=== PATIENT | female | born 1975 | race Caucasian/White ===

== ENCOUNTER 2016-03-11 14:18 | Emergency (ER) | payer BC ==
[~2016-03-11] VITALS: Ht 170.2 cm; Wt 81.8 kg
[~2016-03-11 14:18] MED LIST: AMBIEN 10MG10 MG; AMBIEN 10MG10 MG PO; BENADRYL25 M2 PO; BUSPAR DIVIDOSE15 MG; EFFEXOR-XR150 MG PO; FIORINAL 325 MG1 CAP PO; FLAGYL500 MG PO; FLEXERIL 1010 MG/TAB PO; HAIRSKINNAILS PO; KLONOPIN 0.5MG0.5 MG; MERIBIN5 MG PO; NORCO 325 MG-51 TAB PO; PERCR 7.5 PO
[2016-03-11 14:19] VITALS: TEMP 98.6
[2016-03-11] MEDS ORDERED: WELLBUTRIN XL150 MG (14:52)
[2016-03-11 15:32] LABS: BASO # 0.1 (0.0-0.2); BASO % 0.7 % (0.0-2.0); EOS # 0.1 (0.0-0.7); EOS % 1.4 % (0-4.0); GRAN # 5.7 (1.4-6.5); HEMATOCRIT 40.2 % (37.0-47.0); HEMOGLOBIN 13.7 g/dl (12.5-16.0); LYMPH # 2.8 (1.2-3.4); LYMPH % 29.9 % (20.0-51.0); MEAN CELL VOLUME 91 fl (80.0-100.0); MEAN CORPUSCULAR HEMOGLOBIN 31 pg (27.0-31.0); MEAN CORPUSCULAR HGB CONC 34 g/dl (33.0-37.0); MEAN PLATELET VOLUME 9.7 fl (7.4-10.4); MONO # 0.6 (0.1-0.6); MONO % 6.8 % (1.7-9.3); PLATELET COUNT 346 K/mm3 (130-400); RED BLOOD COUNT 4.43 M/mm3 (4.10-5.30); REDCELL DISTRIBUTION WIDTH-CV 13.3 % (11.5-14.5); WHITE BLOOD COUNT 9.4 K/mm3 (4.8-10.8)
[2016-03-11 15:47] LABS: ADJUSTED CALCIUM 9.3 mg/dL (8.4-10.2); ALANINE AMINOTRANSFERASE 35 U/L (9-52); ALKALINE PHOSPHATASE 93 U/L (50-136); ANION GAP 10 mmol/L (7-16); BILIRUBIN,TOTAL 0.9 mg/dL (0.0-1.0); BLOOD UREA NITROGEN 11 mg/dL (7-17); CALCIUM 9.3 mg/dL (8.4-10.2); CARBON DIOXIDE 23 mmol/L (22-30); CHLORIDE 106 mmol/L (98-107); CREATININE, serum 0.69 mg/dL (0.52-1.25); GLUCOSE 96 mg/dL (74-106); POTASSIUM 4.1 mmol/L (3.4-5.0); SODIUM 139 mmol/L (137-145); TOTAL PROTEIN 7.1 gm/dL (6.4-8.2)
[2016-03-11 16:03] LABS: PROLACTIN 9.8 ng/mL (3.0-18.6)
[2016-03-11 17:24] LABS: TROPONIN-I < 0.012 ng/mL (0.000-0.034)
[2016-03-11] MEDS ORDERED: NORCO 325 MG-51 TAB PO (17:31)
[2016-03-11 17:45] VITALS: BP 114/55; PULSE 74
== END 2016-03-11 17:48 | disposition home or self-care (01) ==
LOC: COL.ER 14:18
PROVIDERS: Emergency Medicine
DX: R55 Syncope and collapse (principal); S00.03XA Contusion of scalp, initial encounter; W18.39XA Other fall on same level, initial encounter; F17.210 Nicotine dependence, cigarettes, uncomplicated
CPT/HCPCS: C9113; J1170; J2270; J2405; J7030

== ENCOUNTER 2017-05-03 20:14 | Emergency (ER) | payer BC ==
[~2017-05-03] VITALS: Ht 170.2 cm; Wt 77.3 kg
[~2017-05-03 20:14] MED LIST changes: +MIGRAINE; +PERCOCET 325 MG1 TA2 PO; +TOPAMAX 100MG100 M1 PO; +WELLBUTRIN XL150 MG
[2017-05-03 20:17] VITALS: TEMP 99.2
[2017-05-03] MEDS ORDERED: EFFEXOR XR75 MG/CAP PO (23:12)
[2017-05-03] MEDS ORDERED: DOXYCYCLINE 10100 MG PO (23:21)
[2017-05-03 23:41] VITALS: BP 132/82; PULSE 100
== END 2017-05-03 23:41 | disposition home or self-care (01) ==
LOC: COL.ER 20:14
DX: J20.9 Acute bronchitis, unspecified (principal); F41.9 Anxiety disorder, unspecified; F17.210 Nicotine dependence, cigarettes, uncomplicated; Z88.8 Allergy status to other drugs, medicaments and biological substances; Z90.49 Acquired absence of other specified parts of digestive tract; Z98.890 Other specified postprocedural states

== ENCOUNTER 2017-05-28 04:09 | Inpatient (IN) | payer BC ==
[~2017-05-28] VITALS: Ht 170.2 cm; Wt 78.5 kg
[~2017-05-28 04:09] MED LIST changes: +DOXYCYCLINE 10100 MG PO; +EFFEXOR XR75 MG/CAP PO
[2017-05-28] MEDS ORDERED: BUSPAR DIVIDOSE15 MG PO (04:34)
[2017-05-28 04:48] LABS: BASO # 0.1 (0.0-0.2); BASO % 0.4 % (0.0-2.0); EOS # 0.3 (0.0-0.7); GRAN # 7.7 (1.4-6.5); GRAN % 56.4 % (42.2-75.2); HEMATOCRIT 42.7 % (37.0-47.0); HEMOGLOBIN 14.8 g/dl (12.5-16.0); LYMPH # 4.7 (1.2-3.4); LYMPH % 34.3 % (20.0-51.0); MEAN CELL VOLUME 91 fl (80.0-100.0); MEAN CORPUSCULAR HEMOGLOBIN 31 pg (27.0-31.0); MEAN CORPUSCULAR HGB CONC 35 g/dl (33.0-37.0); MEAN PLATELET VOLUME 9.6 fl (7.4-10.4); MONO # 0.9 (0.1-0.6); MONO % 6.6 % (1.7-9.3); PLATELET COUNT 316 K/mm3 (130-400); RED BLOOD COUNT 4.72 M/mm3 (4.10-5.30); REDCELL DISTRIBUTION WIDTH-CV 13.4 % (11.5-14.5)
[2017-05-28 05:00] LABS: ALANINE AMINOTRANSFERASE 35 U/L (9-52); ALBUMIN 4.2 gm/dL (3.5-5.0); ALKALINE PHOSPHATASE 87 U/L (50-136); ANION GAP 13 mmol/L (7-16); AST,SGOT 16 U/L (15-37); BILIRUBIN,TOTAL 0.3 mg/dL (0.0-1.0); BLOOD UREA NITROGEN 20 mg/dL (7-17); CALCIUM 9.2 mg/dL (8.4-10.2); CARBON DIOXIDE 22 mmol/L (22-30); CHLORIDE 104 mmol/L (98-107); CREATININE, serum 0.67 mg/dL (0.52-1.25); GLUCOSE 110 mg/dL (74-106); MAGNESIUM 1.8 mg/dL (1.6-2.3); POTASSIUM 3.9 mmol/L (3.4-5.0); SODIUM 139 mmol/L (137-145)
[2017-05-28 05:11] LABS: TROPONIN-I < 0.012 ng/mL (0.000-0.034)
[2017-05-28 05:30] LABS: TSH w REFLEX 0.845 uIU/mL (0.465-4.680)
[2017-05-28 07:57] VITALS: BP 133/81; PULSE 81; TEMP 98.8
[2017-05-28] MEDS ORDERED: BIOTIN10000 MC1 PO (08:27)
[2017-05-28 09:16] LABS: CHOLESTEROL RISK RATIO 5.3
[2017-05-28 11:45] VITALS: BP 132/76; PULSE 83; TEMP 98.8
[2017-05-28 15:29] VITALS: BP 123/66; PULSE 84; TEMP 97.8
[2017-05-28 20:10] VITALS: BP 133/76; PULSE 89; TEMP 98.6
[2017-05-28 23:29] VITALS: BP 125/81; PULSE 91; TEMP 97.4
[2017-05-29 03:41] VITALS: BP 120/60; PULSE 75; TEMP 98.6
[2017-05-29 04:40] VITALS: BP 120/60; PULSE 75; TEMP 98.6
[2017-05-29 07:29] VITALS: BP 106/61; PULSE 86; TEMP 98
[2017-05-29 07:55] LABS: BASO # 0.1 (0.0-0.2); BASO % 0.7 % (0.0-2.0); EOS # 0.3 (0.0-0.7); EOS % 2.8 % (0-4.0); GRAN % 48.2 % (42.2-75.2); HEMATOCRIT 42.7 % (37.0-47.0); HEMOGLOBIN 14.2 g/dl (12.5-16.0); LYMPH # 4.3 (1.2-3.4); LYMPH % 40.9 % (20.0-51.0); MEAN CELL VOLUME 94 fl (80.0-100.0); MEAN CORPUSCULAR HEMOGLOBIN 31 pg (27.0-31.0); MEAN CORPUSCULAR HGB CONC 33 g/dl (33.0-37.0); MEAN PLATELET VOLUME 10.1 fl (7.4-10.4); MONO # 0.7 (0.1-0.6); MONO % 6.9 % (1.7-9.3); PLATELET COUNT 286 K/mm3 (130-400); RED BLOOD COUNT 4.53 M/mm3 (4.10-5.30); REDCELL DISTRIBUTION WIDTH-CV 13.9 % (11.5-14.5)
[2017-05-29 08:16] LABS: CALCIUM 8.8 mg/dL (8.4-10.2); CREATININE, serum 0.71 mg/dL (0.52-1.25)
[2017-05-29] MEDS ORDERED: MAG-OX 400400 MG/TAB PO (11:11)
[2017-05-29 11:38] VITALS: BP 117/64; PULSE 96; TEMP 98.1
== END 2017-05-29 12:00 | disposition home or self-care (01) | DRG 103 ==
LOC: COL.ER 04:09 → MEDICAL 06:55
PROVIDERS: Emergency Medicine; Physician Assistant
DX: G43.409 Hemiplegic migraine, not intractable, without status migrainosus (principal); F41.9 Anxiety disorder, unspecified; F17.210 Nicotine dependence, cigarettes, uncomplicated; R07.9 Chest pain, unspecified
CPT/HCPCS: 99223-AI; 99239; A9585; J1200; J1650; J2765; J7030

== ENCOUNTER 2018-03-14 15:55 | Emergency (ER) | payer OTHER ==
[~2018-03-14] VITALS: Ht 170.2 cm; Wt 77.3 kg
[~2018-03-14 15:55] MED LIST changes: +BIOTIN10000 MC1 PO; +BUSPAR DIVIDOSE15 MG PO; +MAG-OX 400400 MG/TAB PO
[2018-03-14 16:00] VITALS: TEMP 99.1
[2018-03-14 16:58] LABS: COLLECTION METHOD CLEAN CATCH
[2018-03-14 17:05] LABS: MUCOUS Present /lpf; PH 5 (5-8); URINE APPEARANCE Clear; URINE BACTERIA None Seen /hpf; URINE BILIRUBIN Negative (NEGATIVE); URINE BLOOD Negative (NEGATIVE); URINE COLOR Amber; URINE GLUCOSE Negative (NEGATIVE); URINE KETONE Negative (NEGATIVE); URINE LEUKOCYTE ESTERASE Negative (NEGATIVE); URINE NITRATE Positive (NEGATIVE); URINE PROTEIN(semi-quant) Negative (NEGATIVE); URINE UROBILINOGEN >=4.0 mg/dL (NEGATIVE)
[2018-03-14 18:00] LABS: BASO # 0.1 (0.0-0.2); BASO % 0.5 % (0.0-2.0); EOS # 0.1 (0.0-0.7); EOS % 0.7 % (0-4.0); GRAN # 9.8 (1.4-6.5); GRAN % 73.7 % (42.2-75.2); HEMATOCRIT 43.7 % (37.0-47.0); HEMOGLOBIN 14.8 g/dl (12.5-16.0); LYMPH # 2.7 (1.2-3.4); LYMPH % 20.2 % (20.0-51.0); MEAN CELL VOLUME 95 fl (80.0-100.0); MEAN CORPUSCULAR HEMOGLOBIN 32 pg (27.0-31.0); MEAN CORPUSCULAR HGB CONC 34 g/dl (33.0-37.0); MEAN PLATELET VOLUME 9.6 fl (7.4-10.4); MONO # 0.6 (0.1-0.6); MONO % 4.4 % (1.7-9.3); PLATELET COUNT 354 K/mm3 (130-400); RED BLOOD COUNT 4.61 M/mm3 (4.10-5.30); REDCELL DISTRIBUTION WIDTH-CV 13.2 % (11.5-14.5)
[2018-03-14 18:20] LABS: ALANINE AMINOTRANSFERASE 43 U/L (9-52); ALBUMIN 4.6 gm/dL (3.5-5.0); ALKALINE PHOSPHATASE 69 U/L (50-136); ANION GAP 11 mmol/L (7-16); AST,SGOT 19 U/L (15-37); BILIRUBIN,TOTAL 0.4 mg/dL (0.0-1.0); BLOOD UREA NITROGEN 12 mg/dL (7-17); C-REACTIVE PROTEIN < 0.5 mg/dL (0.0-0.9); CALCIUM 9.4 mg/dL (8.4-10.2); CARBON DIOXIDE 20 mmol/L (22-30); CHLORIDE 108 mmol/L (98-107); CREATININE, serum 0.76 mg/dL (0.52-1.25); GLUCOSE 117 mg/dL (74-106); POTASSIUM 3.6 mmol/L (3.4-5.0); SODIUM 140 mmol/L (137-145); TOTAL PROTEIN 7.8 gm/dL (6.4-8.2)
[2018-03-14] MEDS ORDERED: ZOFRAN ODT4 MG PO (19:14)
[2018-03-14] MEDS ORDERED: CEFTIN 250250 MG/TAB PO (19:14)
[2018-03-14] MEDS ORDERED: ULTRAM 50MG TAB50 MG PO (19:14)
[2018-03-14 19:32] VITALS: BP 136/92; PULSE 76
== END 2018-03-14 19:35 | disposition home or self-care (01) ==
LOC: COL.ER 15:55
PROVIDERS: Nurse Practitioner; Physician Assistant
DX: R30.0 Dysuria (principal); R10.9 Unspecified abdominal pain; F17.210 Nicotine dependence, cigarettes, uncomplicated; Z90.49 Acquired absence of other specified parts of digestive tract; Z98.890 Other specified postprocedural states; Z88.8 Allergy status to other drugs, medicaments and biological substances
CPT/HCPCS: A4216; J0696; J1170; J1885; J2405; J7030